=== PATIENT | female | born 1995 | race Caucasian/White ===

== ENCOUNTER 2020-07-09 10:45 | Emergency (ER) | payer BC ==
[2020-07-09] MEDS ORDERED: NA CHLORIDE 0.9% 1,000 ML ONE (11:17)
[2020-07-09] MEDS ORDERED: ACETAMINOPHEN 500 MG TAB ONE (11:17)
[2020-07-09 11:35] LABS: Absolute Lymphocytes (CBC) 2.5 K/uL (0.7-4.9); Basophils % 0.5 % (0-1.3); Hematocrit 39.7 % (36.0-45.0); Lymphocytes % 14.6 % (15.3-44.8); MPV 7.7 fL (7.6-11.3); RBC Red Blood Cell Count 4.98 M/uL (3.86-4.86)
[2020-07-09 11:51] LABS: Urine Bacteria >50 /HPF (<20); Urine Culture Reflex Order REFLEXED; Urine RBC <5 /HPF (NONE SEEN)
[2020-07-09 11:52] LABS: Urine Blood 2+ (NEG); Urine Glucose NEGATIVE (NEG); Urine Protein 2+ (NEG)
[2020-07-09 11:54] LABS: Potassium 3.6 mmol/L (3.5-5.1)
[2020-07-09] MEDS ORDERED: CEFTRIAXONE/SWI 1gm 1 GM/10 ML SYR ONE (12:39)
--- NOTE | 2020-07-09 13:12 | RAD REPORT ---
EXAM DESCRIPTION: CT - Abdomen Pelvis W Contrast - 07/09/2020 12:27 pm CLINICAL HISTORY: Abdominal pain COMPARISON: none. TECHNIQUE: Computed axial tomography of the abdomen pelvis was obtained. 100 cc Isovue-300 was admin istered intravenously. Oral contrast was not requested which limits evaluation of bowel. All CT scans are performed using dose optimization technique as appropriate and may include automated exposure control or mA/KV adjustment according to patient size. FINDINGS: Mild fatty liver Spleen, pancreas, adrenal and left kidney appear unremarkable. There is no evidence of diverticulitis. Normal appendix 2.8 centimeter low to intermediate density area is present within the midpole of the right kidney. 1.3 centimeter irregularly-shaped left ovarian follicle. No significant free fluid IMPRESSION: 2.8 centimeter low to intermediate density area right kidney most likely pyelonephritis. Neoplasm can also have this appearance but is considered less likely. It is recommended that the pat ient have a followup renal ultrasound in 2 months for re-evaluation
--- NOTE | 2020-07-09 13:31 | ER ---
Nurse's Notes [facility] Name: Aimee Santos Age: 24 yrs Sex: Female : 1995 Arrival Date: 07/09/2020 Time: 10:49 Bed 19 Private MD: Diagnosis: Acute tubulo-interstitial nephritis Presentation: 07/09 10:53 Chief complaint: Patient states: Right flank pain for 3-4 days with nausea. Pelvic pain ll1 with urination. Feels tired, no appetite. + fever at home with FRANCIS. Coronavirus screen: Client denies travel out of the [place] in the last 14 days. chills, fatigue, fever, headache, nausea, Client presents with at least one sign or symptom that may indicate coronavirus-19. Standard/surgical mask placed on the client. Ebola Screen: Patient denies travel to an Ebola-affected area in the 21 days before illness onset. Initial Sepsis Screen: Does the patient meet any 2 criteria? Temp <36.0*C (96.8*F)) or > 38.3*C (100.9*F). HR > 90 bpm. Yes Does the patient have a suspected source of infection? Yes: Dysuria/Frequency/Urgency/UTI. Risk Assessment: Do you want to hurt yourself or someone else? Patient reports no desire to harm self or others. Onset of symptoms was July 05, 2020. 10:53 Method Of Arrival: Ambulatory ll1 10:53 Acuity: IRAIS 2 ll1 11:04 Note Sepsis alert called. ll1 Historical: - Allergies: 10:56 No Known Allergies; ll1 - PSHx: 10:56 None; ll1 - Immunization history:: Flu vaccine is up to date. - Social history:: Smoking status: Patient denies any tobacco usage or history of. Screenin:17 Abuse screen: Denies threats or abuse. Denies injuries from another. Nutritional hb screening: No deficits noted. Tuberculosis screening: No symptoms or risk factors identified. Fall Risk None identified. Assessment: 11:03 Reassessment: Code Sepsis called, WILLY Saldivar at bedside. hb 11:04 Reassessment: sepsis workup not indicated at this time per WILLY Saldivar. hb 11:10 General: Appears in no apparent distress. ill. Pain: Pain currently is 5 out of 10 on a hb pain scale. Neuro: Level of Consciousness is awake, alert, obeys commands, Oriented to person, place, time, situation. Cardiovascular: Capillary refill < 3 seconds Patient's skin is warm and dry. Respiratory: Respiratory effort is even, unlabored, Respiratory pattern is regular, symmetrical. GI: No signs and/or symptoms were reported involving the gastrointestinal system. : Reports flank pain, dysuria. EENT: No signs and/or symptoms were reported regarding the EENT system. Derm: Skin is pink, warm \T\ dry. Musculoskeletal: No signs and/or symptoms reported regarding the musculoskeletal system. 12:21 Reassessment: Pt to CT via wheelchair. hb 12:40 Reassessment: Patient appears in no apparent distress at this time. Patient and/or hb family updated on plan of care and expected duration. Pain level reassessed. Patient is alert, oriented x 3, equal unlabored respirations, skin warm/dry/pink. 13:30 Reassessment: Patient appears in no apparent distress at this time. Patient and/or hb family updated on plan of care and expected duration. Pain level reassessed. Patient is alert, oriented x 3, equal unlabored respirations, skin warm/dry/pink. Vital Signs: 10:53 BP 141 / 77; Pulse 140; Resp 18; Temp 102.6; Pulse Ox 97% ; Height 5 ft. 9 in. (175.26 ll1 cm); Pain 5/10; 11:03 Weight 90.5 kg; ll1 12:20 BP 124 / 82; Pulse 110; Resp 16; Temp 99.2(TE); Pulse Ox 99% on R/A; hb 11:03 Body Mass Index 29.46 (90.50 kg, 175.26 cm) ll1 ED Course: 10:49 Patient arrived in ED. ds1 10:49 Janna Decker FNP-C is [facility]. kb 10:50 Kameron Vogt MD is Attending Physician. kb 10:55 Triage completed. ll1 10:56 Arm band placed on Patient placed in an exam room, on a stretcher. ll1 10:59 Jeny Webster, MALINI is Primary Nurse. hb 11:12 Initial lab(s) drawn, by me, sent to lab. Inserted saline lock: 20 gauge in right dh3 antecubital area, using aseptic technique. Blood collected. 11:17 Patient has correct armband on for positive identification. Bed in low position. Call hb light in reach. Side rails up X 1. 12:27 CT Abd/Pelvis - IV Contrast Only In Process Unspecified. EDMS 13:45 No provider procedures requiring assistance completed. IV discontinued, intact, hb bleeding controlled, No redness/swelling at site. Administered Medications: 11:12 Drug: NS 0.9% 1000 ml Route: IV; Rate: 1000 ml; Site: right antecubital; hb 12:10 Follow up: Response: No adverse reaction; IV Status: Completed infusion; IV Intake: hb 1000ml 11:16 Drug: Tylenol 1000 mg Route: PO; hb 12:00 Follow up: Response: No adverse reaction hb 12:47 Drug: Rocephin 1 grams Route: IV; Rate: calculated rate; Site: right antecubital; hb Intake: 12:10 IV: 1000ml; Total: 1000ml. hb Outcome: 13:30 Discharge ordered by . kb 13:45 Discharged to home ambulatory, with family. hb 13:45 Condition: stable 13:45 Discharge instructions given to patient, Instructed on discharge instructions, follow up and referral plans. medication usage, Demonstrated understanding of instructions, follow-up care, medications, Prescriptions given X 3. 13:46 Patient left the ED. hb Signatures: Dispatcher [employer] EDMS Janna Decker, FOREST FIREFIGHTER-C FOREST FIREFIGHTER-Saira Faust ds1 Jeny Webster, RN RN Michelle Matamoros 3 Andreia Davies, RN RN ll1
--- NOTE | 2020-07-09 13:31 | EDPHYS ---
Physician Documentation [facility] Name: Aimee Santos Age: 24 yrs Sex: Female : 1995 Arrival Date: 07/09/2020 Time: 10:49 Bed 19 Private MD: ED Physician Kameron Vogt HPI: 07/09 13:45 This 24 yrs old Female presents to ER via Ambulatory with complaints of Back kb Pain, Fever. 13:46 The patient presents with flank pain, on the right, urinary symptoms, dysuria, kb frequency. Onset: The symptoms/episode began/occurred 4 day(s) ago. Modifying factors: The symptoms are alleviated by nothing, the symptoms are aggravated by nothing. Associated signs and symptoms: Pertinent positives: dysuria, fever, urinary frequency, Pertinent negatives: constipation, cramping, diarrhea, dyspareunia, hematuria, nausea, vaginal bleeding, vaginal discharge, vomiting. Severity of symptoms: At their worst the symptoms were moderate, in the emergency department the symptoms are unchanged. The patient has not experienced similar symptoms in the past. The patient has not recently seen a physician. Historical: - Allergies: 10:56 No Known Allergies; ll1 - PSHx: 10:56 None; ll1 - Immunization history:: Flu vaccine is up to date. - Social history:: Smoking status: Patient denies any tobacco usage or history of. ROS: 13:46 Cardiovascular: Negative for chest pain, palpitations, and edema, Respiratory: Negative kb for shortness of breath, cough, wheezing, and pleuritic chest pain, Abdomen/GI: Negative for abdominal pain, nausea, vomiting, diarrhea, and constipation, MS/Extremity: Negative for injury and deformity, Skin: Negative for injury, rash, and discoloration, Neuro: Negative for headache, weakness, numbness, tingling, and seizure. 13:46 Constitutional: Positive for chills, fever, malaise. 13:46 : Positive for urinary symptoms, flank pain, urinary frequency, burning with urination. Exam: 13:46 Constitutional: This is a well developed, well nourished patient who is awake, alert, kb and in no acute distress. Head/Face: Normocephalic, atraumatic. Chest/axilla: Normal chest wall appearance and motion. Nontender with no deformity. No lesions are appreciated. Cardiovascular: Regular rate and rhythm with a normal S1 and S2. No gallops, murmurs, or rubs. Normal PMI, no JVD. No pulse deficits. Respiratory: Lungs have equal breath sounds bilaterally, clear to auscultation and percussion. No rales, rhonchi or wheezes noted. No increased work of breathing, no retractions or nasal flaring. Back: No spinal tenderness. No costovertebral tenderness. Full range of motion. Skin: Warm, dry with normal turgor. Normal color with no rashes, no lesions, and no evidence of cellulitis. MS/ Extremity: Pulses equal, no cyanosis. Neurovascular intact. Full, normal range of motion. Neuro: Awake and alert, GCS 15, oriented to person, place, time, and situation. Cranial nerves II-XII grossly intact. Motor strength 5/5 in all extremities. Sensory grossly intact. Cerebellar exam normal. Normal gait. 13:46 Abdomen/GI: Inspection: abdomen appears normal, Bowel sounds: normal, in all quadrants, Palpation: soft, in all quadrants, mild abdominal tenderness, in the suprapubic area. Vital Signs: 10:53 BP 141 / 77; Pulse 140; Resp 18; Temp 102.6; Pulse Ox 97% ; Height 5 ft. 9 in. (175.26 ll1 cm); Pain 5/10; 11:03 Weight 90.5 kg; ll1 12:20 BP 124 / 82; Pulse 110; Resp 16; Temp 99.2(TE); Pulse Ox 99% on R/A; hb 11:03 Body Mass Index 29.46 (90.50 kg, 175.26 cm) ll1 MDM: 11:00 Patient medically screened. kb 13:45 Data reviewed: vital signs, nurses notes. Data interpreted: Pulse oximetry: on room air kb is 99 %. Interpretation: normal. Counseling: I had a detailed discussion with the patient and/or guardian regarding: the historical points, exam findings, and any diagnostic results supporting the discharge/admit diagnosis, lab results, radiology results, the need for outpatient follow up, a family practitioner, to return to the emergency department if symptoms worsen or persist or if there are any questions or concerns that arise at home. 07/09 11:00 Order name: Basic Metabolic Panel; Complete Time: 11:56 kb 07/09 11:00 Order name: CBC with Diff; Complete Time: 11:39 kb 07/09 11:00 Order name: Urine Microscopic Only; Complete Time: 11:54 kb 07/09 11:36 Order name: Urine Dipstick--Ancillary (enter results); Complete Time: 11:54 bd 07/09 11:36 Order name: Urine --Ancillary (enter results); Complete Time: 11:54 bd 07/09 11:53 Order name: Urine Culture EDMS 07/09 11:00 Order name: IV Saline Lock; Complete Time: 11:16 kb 07/09 11:00 Order name: Labs collected and sent; Complete Time: 11:16 kb 07/09 11:00 Order name: Urine Test (obtain specimen); Complete Time: 11:21 kb 07/09 11:00 Order name: Urine Dipstick-Ancillary (obtain specimen); Complete Time: 11:21 kb 07/09 12:12 Order name: CT Abd/Pelvis - IV Contrast Only; Complete Time: 13:21 kb 07/09 12:12 Order name: Vital Signs; Complete Time: 12:23 kb Administered Medications: 11:12 Drug: NS 0.9% 1000 ml Route: IV; Rate: 1000 ml; Site: right antecubital; hb 12:10 Follow up: Response: No adverse reaction; IV Status: Completed infusion; IV Intake: hb 1000ml 11:16 Drug: Tylenol 1000 mg Route: PO; hb 12:00 Follow up: Response: No adverse reaction hb 12:47 Drug: Rocephin 1 grams Route: IV; Rate: calculated rate; Site: right antecubital; hb Disposition: 15:36 Co-signature as Attending Physician, Kameron Vogt MD. ma2 Disposition: 07/09/20 13:30 Discharged to Home. Impression: Acute tubulo-interstitial nephritis. - Condition is Stable. - Discharge Instructions: Pyelonephritis, Adult, [id number]. - Prescriptions for Augmentin 875- 125 mg Oral Tablet - take 1 tablet by ORAL route every 12 hours for 10 days; 20 tablet. Zofran 4 mg Oral Tablet - take 1 tablet by ORAL route every 6 hours As needed; 20 tablet. Diclofenac Sodium 75 mg Oral Tablet, Delayed Release (E.C.) - take 1 tablet by ORAL route 2 times per day As needed; 30 tablet. - Medication Reconciliation Form, Thank You Letter, Antibiotic Education, Prescription Opioid Use, Family Work Release form. - Follow up: Emergency Department; When: As needed; Reason: Worsening of condition. Follow up: Private Physician; When: 2 - 3 days; Reason: Recheck today's complaints, Continuance of care, Re-evaluation by your physician. Signatures: Dispatcher [employer] EDNE Janna Decker, ORGANIZATIONAL DEVELOPMENT SPECIALIST-C ORGANIZATIONAL DEVELOPMENT SPECIALIST-Jeny Brice, RN RN Kameron Vogt MD MD ma2 Andreia Davies RN RN ll1 Corrections: (The following items were deleted from the chart) 13:46 13:30 07/09/2020 13:30 Discharged to Home. Impression: Acute tubulo-interstitial hb nephritis. Condition is Stable. Forms are Medication Reconciliation Form, Thank You Letter, Antibiotic Education, Prescription Opioid Use. Follow up: Emergency Department; When: As needed; Reason: Worsening of condition. Follow up: Private Physician; When: 2 - 3 days; Reason: Recheck today's complaints, Continuance of care, Re-evaluation by your physician. kb
[2020-07-09 14:05] VITALS: BP 124/82; TEMP 99.2; O2SAT 99
== END 2020-07-09 13:46 | disposition home or self-care (01) ==
LOC: ER 10:45
DX: N10 Acute pyelonephritis (principal)
CPT/HCPCS: 87088; 85025; 87086; 80048; 36415; 81025; 74177; J0696; J7030; 81003; 81015

== ENCOUNTER 2024-07-06 09:47 | Emergency (ER) | payer BC, SELFPAY ==
--- OUTSIDE RECORDS SUMMARY | 2024-07-06 09:49 | XMS REPORT | Continuity of Care Document ---
Author Name Unknown Address [address] [place] [address] thconnect Address [address] [place] [address] Care Team Providers Care Chip Mixer Name Role Phone [email or web address] Attending Clinician Unavaila ble [email or web address] Admitting Clinician Unavaila ble Encounters Start Date/Time End Date/Time Encounter Type Admission Type Attending Clinicians Care Facility Care Department Encounter ID Source 2023-07-13 00:00:00 2023-07-13 00:00:00 Outpatient [email or web address] [facility] [id number] [facility]
[2024-07-06] MEDS ORDERED: IBUPROFEN 200 MG TAB PO ONE (10:04)
[2024-07-06 11:14] LABS: Specific Gravity 1.006 (1.005-1.030); Sqamous Epithelial <5 /HPF (None Seen); Urine Bacteria <20 /HPF (<20); Urine Bilirubin NEGATIVE (Negative); Urine Blood Negative (Negative); Urine Clarity Turbid (Clear); Urine Color Colorless (Yellow); Urine Culture Reflex Order NOT NEEDED; Urine Glucose NEGATIVE (Negative); Urine Ketones NEGATIVE (Negative); Urine Microscopic Reflex YN ORDER UMIC; Urine Nitrite NEGATIVE (Negative); Urine Protein NEGATIVE (Negative); Urine RBC <5 /HPF (None Seen); Urine Urobilinogen Normal (Normal); Urine WBC <5 /HPF (<5)
[2024-07-06 11:15] LABS: Specific Gravity 1.006 (1.005-1.030)
--- NOTE | 2024-07-06 11:34 | RAD REPORT ---
EXAMINATION: XR Foot Right 3 View CLINICAL INDICATION: Female, 28 years old. [facility] MAIN PAIN Bed: TECHNIQUE: 3 view radiographs of the left foot were obtained. COMPARISON: No prior exam. FINDINGS: No evidence of fracture or dislocation. Normal alignment. No evidence of arthropathy or oth er focal bone lesion. Soft tissues are unremarkable. No soft tissue swelling. No significant degenerative changes. IMPRESSION: No acute or significant abnormalities.
--- NOTE | 2024-07-06 12:17 | EDPHYS ---
Physician Documentation [facility] Name: Aimee Santos Age: 28 yrs Sex: Female : 1995 Arrival Date: 07/06/2024 Time: 09:47 Bed 8 Private MD: Jayce Rubio HPI: 07/06 11:30 This 28 yrs old Female presents to ER via Ambulatory with complaints of right vamsi foot swelling. 11:30 The patient presents with decreased range of motion, pain, swelling. The complaints vamsi affect the right foot. Context: The problem was sustained at an unknown location, resulted from an unknown cause, Mechanism of Injury: Unknown the patient can fully bear weight. Onset: The symptoms/episode began/occurred 1 day(s) ago. Modifying factors: The symptoms are alleviated by elevation of extremity, the symptoms are aggravated by movement, wearing shoes. Associated signs and symptoms: The patient has no apparent associated signs or symptoms. Severity of symptoms: At their worst the symptoms were moderate. The patient has not experienced similar symptoms in the past. MEDIA TRAFFIC MANAGER: 10:08 LMP 07/03/2024, unknown kc6 Historical: - Allergies: 10:08 No Known Allergies; kc6 - Home Meds: 10:08 None [Active]; kc6 - PMHx: 10:08 None; kc6 - PSHx: 10:08 None; kc6 - Immunization history:: Adult Immunizations up to date. - Infectious Disease History:: Denies. - Social history:: Smoking status: Reported history of juuling and/or vaping. - Family history:: not pertinent. ROS: 11:30 Constitutional: Negative for fever, chills, and weight loss, Eyes: Negative for injury, vamsi pain, redness, and discharge, ENT: Negative for injury, pain, and discharge, Neck: Negative for injury, pain, and swelling, Cardiovascular: Negative for chest pain, palpitations, and edema, Respiratory: Negative for shortness of breath, cough, wheezing, and pleuritic chest pain, Abdomen/GI: Negative for abdominal pain, nausea, vomiting, diarrhea, and constipation, Back: Negative for injury and pain, : Negative for injury, bleeding, discharge, and swelling, Skin: Negative for injury, rash, and discoloration, Neuro: Negative for headache, weakness, numbness, tingling, and seizure, Psych: Negative for depression, anxiety, suicide ideation, homicidal ideation, and hallucinations, Allergy/Immunology: Negative for hives, rash, and allergies, Endocrine: Negative for neck swelling, polydipsia, polyuria, polyphagia, and marked weight changes, Hematologic/Lymphatic: Negative for swollen nodes, abnormal bleeding, and unusual bruising, 11:30 MS/extremity: Positive for pain, swelling, tenderness, of the dorsum of right foot, Exam: 11:30 Constitutional: This is a well developed, well nourished patient who is awake, alert, vamsi and in no acute distress. Head/Face: Normocephalic, atraumatic. Eyes: Pupils equal round and reactive to light, extra-ocular motions intact. Lids and lashes normal. Conjunctiva and sclera are non-icteric and not injected. Cornea within normal limits. Periorbital areas with no swelling, redness, or edema. ENT: Nares patent. No nasal discharge, no septal abnormalities noted. Tympanic membranes are normal and external auditory canals are clear. Oropharynx with no redness, swelling, or masses, exudates, or evidence of obstruction, uvula midline. Mucous membranes moist. Neck: Trachea midline, no thyromegaly or masses palpated, and no cervical lymphadenopathy. Supple, full range of motion without nuchal rigidity, or vertebral point tenderness. No Meningismus. Chest/axilla: Normal chest wall appearance and motion. Nontender with no deformity. No lesions are appreciated. Cardiovascular: Regular rate and rhythm with a normal S1 and S2. No gallops, murmurs, or rubs. Normal PMI, no JVD. No pulse deficits. Respiratory: Lungs have equal breath sounds bilaterally, clear to auscultation and percussion. No rales, rhonchi or wheezes noted. No increased work of breathing, no retractions or nasal flaring. Abdomen/GI: Soft, non-tender, with normal bowel sounds. No distension or tympany. No guarding or rebound. No evidence of tenderness throughout. Back: No spinal tenderness. No costovertebral tenderness. Full range of motion. Skin: Warm, dry with normal turgor. Normal color with no rashes, no lesions, and no evidence of cellulitis. Neuro: Awake and alert, GCS 15, oriented to person, place, time, and situation. Cranial nerves II-XII grossly intact. Motor strength 5/5 in all extremities. Sensory grossly intact. Cerebellar exam normal. Normal gait. Psych: Awake, alert, with orientation to person, place and time. Behavior, mood, and affect are within normal limits. 11:30 Musculoskeletal/extremity: ROM: no acute changes, intact in all extremities, full active range of motion, full passive range of motion, Circulation is intact in all extremities. Sensation intact. Compartment Syndrome exam of affected extremity: is normal. Joints: All joints appear normal with full range of motion. Weight bearing: able to fully bear weight, DVT Exam: no pain, no tenderness, negative Homans' sign noted on exam, no appreciated bluish discoloration, no erythema, no increased warmth, swelling, Vital Signs: 10:07 BP 129 / 82; Pulse 90; Resp 18 S; Pulse Ox 98% on R/A; Weight 105.23 kg (M); Height 5 kc6 ft. 9 in. (R); 10:14 BP 123 / 89; Pulse 98; Resp 17; Pulse Ox 97% on R/A; ko1 12:20 BP 112 / 75; Pulse 73; Resp 14; Pulse Ox 99% ; ko1 10:07 Body Mass Index 34.26 (105.23 kg, 175.26 cm) kc6 MDM: 09:54 Medical Screening Exam initiated vamsi 12:14 Differential diagnosis: fracture, sprain, foreign body, penetrating trauma, arthritis, vamsi gout, cellulitis. Data reviewed: vital signs, nurses notes, radiologic studies, doppler, plain films. Consideration of Admission/Observation Patient was admitted/placed on observation. Escalation of care including admission/observation considered. I considered the following discharge prescriptions or medication management in the emergency department Medications were administered in the Emergency Department. See MAR. Independent interpretation of the following test(s) in the Emergency Department Radiology Department Ultrasound: My interpretation is doppler neg. Test considered but Not performed: Labs: no cbc, no comp. Historians other than the Patient: Spouse/Significant Other: well informed. Care significantly affected by the following chronic conditions: Obesity. Counseling: I had a detailed discussion with the patient and/or guardian regarding the historical points, exam findings, and any diagnostic results supporting the discharge/admit diagnosis, lab results, radiology results, the need for outpatient follow up, for definitive care, a family practitioner, a orthopedic surgeon. 07/06 09:55 Order name: Urinalysis w/ reflexes; Complete Time: 11:15 [facility] 07/06 09:55 Order name: PREGU; Complete Time: 11:15 [facility] 07/06 09:55 Order name: Foot Right 3 View XRAY [facility] 07/06 11:30 Order name: US Extremity Venous Unilateral Ltd [facility] 07/06 09:55 Order name: Ice pack; Complete Time: 10:02 [facility] 07/06 11:29 Order name: Post-op shoe; Complete Time: 11:49 [facility] Administered Medications: 10:06 Drug: Ibuprofen PO 600 mg PO once Route: PO; ko1 11:34 Follow up: Response: No adverse reaction mb9 Disposition Summary: 07/06/24 12:16 Discharge Ordered Notes: Location: Home [facility] Problem: new vamsi Symptoms: have improved vamsi Condition: Stable vamsi Diagnosis - Localized edema - right dorsal foot vamsi Followup: vamsi - With: Private Physician - When: 2 - 3 days - Reason: Recheck today's complaints, Re-evaluation by your physician Followup: vamsi - With: Prateek Mancilla MD - When: 2 - 3 days - Reason: Recheck today's complaints, Re-evaluation by your physician Discharge Instructions: - Discharge Summary Sheet vamsi - Foot Contusion vamsi - Edema vamsi - Foot Sprain vamsi - Edema, [id number] vamsi - Foot Contusion, [id number] vamsi - Foot Pain [facility] Forms: - Medication Reconciliation Form vamsi - Antibiotic Education vamsi - Prescription Opioid Use vamsi - Patient Portal Instructions [facility] - Leadership Thank You Letter [facility] Prescriptions: - Ibuprofen 600 mg Oral Tablet - take 1 tablet ORAL route every 6 hours As needed take with food; 30 tablet; [facility] Refills: 0, Product Selection Permitted Signatures: Dispatcher [employer] Jayce Crawford MD MD cha Campbell, Kaitlyn RN RN kc6 Aretha Zhong RN RN ko1 Marina Olivarez RN mb9
--- NOTE | 2024-07-06 12:17 | ER ---
Nurse's Notes [facility] Name: Aimee Santos Age: 28 yrs Sex: Female : 1995 Arrival Date: 07/06/2024 Time: 09:47 Bed 8 Private MD: Diagnosis: Localized edema-right dorsal foot Presentation: 07/06 10:07 Chief complaint: Patient states: right foot swelling that started yesterday. denies kc6 injury. Coronavirus screen: At this time, the client does not indicate any symptoms associated with coronavirus-19. Ebola Screen: No symptoms or risks identified at this time. Initial Sepsis Screen: Does the patient meet any 2 criteria? No. Patient's initial sepsis screen is negative. Does the patient have a suspected source of infection? No. Patient's initial sepsis screen is negative. Risk Assessment: Do you want to hurt yourself or someone else? Patient reports no desire to harm self or others. Onset of symptoms was July 06, 2024. 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 - Infectious Disease History:: Denies. - Social history:: Smoking status: Reported history of juuling and/or vaping. - Family history:: not pertinent. Screenin:12 [facility] ED Fall Risk Assessment (Adult) History of falling in the last 3 months, mb9 including since admission No falls in past 3 months (0 pts) Confusion or Disorientation No (0 pts) Intoxicated or Sedated No (0 pts) Impaired Gait No (0 pts) Mobility Assist Device Used No (0 pt) Altered Elimination No (0 pt) Score/Fall Risk Level 0 - 2 = Low Risk Oriented to surroundings, Maintained a safe environment, Educated pt \T\ family on fall prevention, incl call for assistance when getting out of bed. Abuse screen: Denies threats or abuse. Nutritional screening: No deficits noted. Tuberculosis screening: No symptoms or risk factors identified. Assessment: 10:11 General: Appears in no apparent distress. Behavior is calm, cooperative. Pain: mb9 Complains of pain in right foot. Neuro: Man Agitation-Sedation Scale (RASS): 0 - Alert and Calm Level of Consciousness is awake, alert, obeys commands, Oriented to person, place, time, situation, Appropriate for age. Cardiovascular: Patient's skin is warm and dry. Respiratory: Airway is patent Respiratory effort is even, unlabored, Respiratory pattern is regular, symmetrical. GI: No signs and/or symptoms were reported involving the gastrointestinal system. : No signs and/or symptoms were reported regarding the genitourinary system. EENT: No signs and/or symptoms were reported regarding the EENT system. Derm: Skin is pink, warm \T\ dry. Derm: Musculoskeletal: Range of motion: intact in all extremities. Vital Signs: 10:07 BP 129 / 82; Pulse 90; Resp 18 S; Pulse Ox 98% on R/A; Weight 105.23 kg (M); Height 5 kc6 ft. 9 in. (R); 10:14 BP 123 / 89; Pulse 98; Resp 17; Pulse Ox 97% on R/A; ko1 12:20 BP 112 / 75; Pulse 73; Resp 14; Pulse Ox 99% ; ko1 10:07 Body Mass Index 34.26 (105.23 kg, 175.26 cm) [facility] ED Course: 09:50 Patient arrived in ED. ra3 09:54 Jayce Brewer MD is Attending Physician. [facility] 10:02 Marina Olivarez RN is Primary Nurse. mb9 10:08 Triage completed. kc6 10:08 Arm band placed on. kc6 10:12 Bed in low position. Call light in reach. Side rails up X 1. Provided Education on: mb9 press call light if needing anything. Client placed on continuous cardiac and pulse oximetry monitoring. NIBP monitoring applied. 10:12 No provider procedures requiring assistance completed. mb9 10:13 Door closed. Noise minimized. Warm blanket given. Pillow given. Ice pack to injury. mb9 10:39 Foot Right 3 View XRAY In Process Unspecified. EDMS 11:49 Ortho shoe applied to right foot. mb9 11:49 Patient did not have IV access during this emergency room visit. mb9 12:14 US Extremity Venous Unilateral Ltd In Process Unspecified. EDMS 12:16 Prateek Mancilla MD is Referral Physician. vamsi Administered Medications: 10:06 Drug: Ibuprofen PO 600 mg PO once Route: PO; ko1 11:34 Follow up: Response: No adverse reaction mb9 Medication: 10:12 VIS not applicable for this client. mb9 Outcome: 12:16 Discharge ordered by . vamsi 12:20 Discharged to home ambulatory, with family, ko1 12:20 Condition: stable 12:20 Discharge instructions given to patient, family, Instructed on discharge instructions, follow up and referral plans. medication usage, Demonstrated understanding of instructions, follow-up care, medications, Prescriptions given X 1, 12:23 Patient left the ED. ko1 Signatures: Dispatcher [employer] EDMS Jayce Brewer MD MD cha Campbell, Kaitlyn, RN RN kc6 Aretha Zohng RN RN ko1 Marina Olivarez RN RN mb9 Dennise Erwin ra3
--- NOTE | 2024-07-06 12:35 | RAD REPORT ---
EXAMINATION: US RIGHT LOWER EXTREMITY VENOUS DOPPLER CLINICAL INDICATION: [facility] right leg PAIN Bed Name: 9 Y TECHNIQUE: Complete bilateral duplex sonography of the RIGHT lower extremity veins was performed. The examination included compression for vein patency, color Doppler imaging and flow augmentation in response to distal compression of the distal external iliac, common femoral, femoral, popliteal, tibi al, and great and small saphenous veins. COMPARISON: No prior exam. FINDINGS: Duplex sonography testing of the veins of the RIGHT lower extremity was performed. Color flow imaging shows all veins to be compressible with [id number] color filling. Pulsatile and phasic flow is present within all lower extremity deep and superficial veins examined. IMPRESSION: No evidence of deep venous thrombosis.
[2024-07-06 22:18] VITALS: BP 112/75; O2SAT 99
== END 2024-07-06 12:23 | disposition home or self-care (01) ==
LOC: ER 09:47
DX: R60.0 Localized edema (principal)
CPT/HCPCS: 81001; 81025; 93971; 99284